=== PATIENT | female | born 2000 | race Caucasian/White ===

== ENCOUNTER 2021-08-22 19:56 | Outpatient (CLI) | payer OTHER ==
[~2021-08-22 19:56] MED LIST: BENTYL 20MG TAB20 MG PO; CLINDAMYCIN HC300 MG PO; REGLAN10 MG PO
== END 2021-08-22 21:40 | disposition home or self-care (01) ==
LOC: GENOP 19:56
DX: O26.853 Spotting complicating pregnancy, third trimester (principal); Z3A.36 36 weeks gestation of pregnancy
CPT/HCPCS: 59025; 81001

== ENCOUNTER 2021-09-14 07:54 | Inpatient (IN) | payer OTHER ==
[~2021-09-14] VITALS: Ht 152.4 cm; Wt 83.0 kg
[2021-09-14 08:55] LABS: RED BLOOD COUNT 4.07 M/UL (4.00-5.10); WHITE BLOOD COUNT 9.4 K/UL (4.5-11.0)
[2021-09-14] MEDS ORDERED: PRENATAL VITAM1 EAC5 PO (09:32)
[2021-09-15 04:13] LABS: HEMOGLOBIN 9.6 gm/dl (12.3-15.3)
[2021-09-15] MEDS ORDERED: HEMOCYTE324 MG PO (13:18)
[2021-09-15] MEDS ORDERED: IBUPROFEN800 MG PO (13:18)
[2021-09-15] MEDS ORDERED: PERCOCET 5/325 T1 EA PO (13:18)
[2021-09-15] MEDS ORDERED: COLACE100 MG PO (13:18)
== END 2021-09-15 18:32 | disposition home or self-care (01) | DRG 788 ==
LOC: OB 07:54
PROVIDERS: ADMIT Obstetrics & Gynecology
PROC: 3E0234Z Introduction of Serum, Toxoid and Vaccine into Muscle, Percutaneous Approach (ICD-10-PCS; 2021-09-14)
PROC: 10D00Z1 Extraction of Products of Conception, Low, Open Approach (ICD-10-PCS; principal; 2021-09-14 09:00)
DX: O99.892 Other specified diseases and conditions complicating childbirth (principal); M91.12 Juvenile osteochondrosis of head of femur [Legg-Calve-Perthes], left leg; Z3A.39 39 weeks gestation of pregnancy; Z37.0 Single live birth; Z28.310 Unvaccinated for COVID-19; Z83.3 Family history of diabetes mellitus; Z23 Encounter for immunization
CPT/HCPCS: 36415; 81001; 85014; 85018; 85025; 90471; 90715; C9113; J0690; J1170; J1885; J2370; J2405; J2550; J2590; J2795